=== PATIENT | male | born 1970 | race Caucasian/White ===

== ENCOUNTER → 2023-09-13 | Outpatient (CLI) | payer OTHER, MEDICAID ==
[~2023-09-13] VITALS: Ht 193 cm; Wt 188.2 kg
[~2023-09-13] MED LIST: ATROPINE SULF 0.5 MG/5ML SYR ONE; DOBUTamine 1000MCG/ML 250 ML IV ONE; METOPROLOL TARTRATE 1MG/1ML-5ML VIAL IV ONE
[2023-09-13] MEDS: DOBUTamine 1000MCG/ML 100 ML IV ONE (10:43)
[2023-09-13 10:52] VITALS: BP 110/63
== END | disposition home or self-care (01) ==
LOC: XYW 09:49
PROVIDERS: ATTEND Student in an Organized Health Care Education/Training Program
DX: R06.02 Shortness of breath (principal); E78.5 Hyperlipidemia, unspecified; E11.65 Type 2 diabetes mellitus with hyperglycemia; E66.01 Morbid (severe) obesity due to excess calories; Z68.43 Body mass index [BMI] 50.0-59.9, adult; Z79.4 Long term (current) use of insulin; Z86.718 Personal history of other venous thrombosis and embolism
CPT/HCPCS: 93017; 93306; 93350; J1250; J0461